=== PATIENT | female | born 1985 | race Two or more races ===

== ENCOUNTER 2016-09-30 13:59 | Emergency (ER) | payer SELFPAY ==
[~2016-09-30] VITALS: Ht 160 cm; Wt 54.4 kg
[2016-09-30 14:55] LABS: APPEARANCE,URINE SLIGHTLY CLOUDY; KETONES,URINE NEGATIVE (NEGATIVE); LEUKOCYTE ESTERASE ,URINE 2+ (NEGATIVE); NITRITE,URINE NEGATIVE (NEGATIVE); PH,URINE 6.5 (4.5-8.0); PROTEIN,URINE 1+ (NEGATIVE); UROBILINOGEN,URINE NORMAL MG/DL (0.0-1.0)
[2016-09-30 15:07] LABS: BACTERIA,URINE FEW /HPF; SQUAMOUS EPITHELIAL CELL,UR FEW /LPF (NONE/OCC); WBC,URINE 20-30 /HPF (0 - 2)
[2016-09-30] MEDS ORDERED: TYLENOL EXTRA500 MG ORAL (15:14)
[2016-09-30] MEDS ORDERED: CEPHALEXIN500 MG ORAL (15:14)
[2016-09-30 15:28] VITALS: BP 120/80
--- NOTE | 2016-09-30 21:03 | Emergency Room Report ---
History of Present Illness General Chief Complaint: Female Urogenital Problems Source: Patient Present Illness HPI The patient is a 31-year-old female presenting for mid lower abdominal pain and bilateral flank pain which began 3 days prior. Patient also admits to dysuria and increased urinary frequency. The patient states that the pain is a 5/10 dull ache to the mid lower abdomen. Pain does not radiate. Patient denies any vaginal discharge and denies other symptoms including hematuria, fever, chills, nausea, vomiting Allergies: Coded Allergies: No Known Allergies (Unverified , 09/30/16) Patient History Past Medical History: see triage record Pertinent Family History: none Last Menstrual Period: last month Now: No Reviewed Nursing Documentation: PMH: Agreed, PSxH: Agreed Nursing Documentation-PMH Past Medical History: No Stated History Review of Systems All Other Systems: negative except mentioned in HPI Physical Exam Vital Signs Date Time Temp Pulse Resp B/P Pulse Ox O2 Delivery O2 Flow Rate FiO2 09/30/16 14:20 98.1 78 18 122/75 99 Room Air Sp02 EP Interpretation: reviewed, normal General Appearance: no apparent distress, alert, GCS 15, non-toxic Head: normocephalic, atraumatic Eyes: bilateral eye PERRL, bilateral eye normal inspection ENT: hearing grossly normal, normal pharynx, no angioedema, normal voice Gastrointestinal: normal bowel sounds, soft, non-distended, no guarding, no rebound, tenderness - suprapubic Genitourinary: normal inspection, CVA tenderness (R), CVA tenderness (L) Musculoskeletal: back normal, gait/station normal, normal range of motion, non- tender Neurologic: alert, oriented x3, responsive, motor strength/tone normal, sensory intact, speech normal Psychiatric: judgement/insight normal, memory normal, mood/affect normal, no suicidal/homicidal ideation Skin: normal color, no rash, warm/dry, well hydrated Lymphatic: no adenopathy Medical Decision Making PA Attestation Dr. Romero is my supervising physician. Patient management was discussed with my supervising physician Diagnostic Impression: Primary Impression: Pyelonephritis ER Course The patient is a 31-year-old female presenting for mid lower abdominal pain and bilateral flank pain which began 3 days prior Differential diagnosis considered but not limited to: UTI, vaginitis, pyelonephritis, pyelonephrosis, PID, ectopic PE: Vitals WNL. NAD. Abdomen: Normal appearance. Non distended. No ecchymosis. Normal BS. No McBurney point tenderness. No guarding. + suprapubic TTP + bilat CVA tenderness Urinalysis is consistent with urinary tract infection. Pt will be treated for pyelonephritis with keflex. ER precautions given. Pt will FU with PMD Laboratory Tests Test 09/30/16 14:25 Urine Color Pale yellow Urine Appearance Slightly cloudy Urine pH 6.5 (4.5-8.0) Urine Specific [place] 1.010 (1.005-1.035) Urine Protein 1+ (NEGATIVE) H Urine Glucose (UA) Negative (NEGATIVE) Urine Ketones Negative (NEGATIVE) Urine Occult Blood 2+ (NEGATIVE) H Urine Nitrite Negative (NEGATIVE) Urine Bilirubin Negative (NEGATIVE) Urine Urobilinogen Normal MG/DL (0.0-1.0) Urine Leukocyte Esterase 2+ (NEGATIVE) H Urine RBC 2-4 /HPF (0 - 2) H Urine WBC 20-30 /HPF (0 - 2) H Urine Squamous Epithelial Cells Few /LPF (NONE/OCC) Urine Bacteria Few /HPF (NONE) Urine HCG, Qualitative Negative Lab Results Impression 20-30 WBCs Last Vital Signs Date Time Temp Pulse Resp B/P Pulse Ox O2 Delivery O2 Flow Rate FiO2 09/30/16 15:28 97.8 78 18 120/80 Room Air 09/30/16 15:26 98 Status: improved Disposition: HOME, SELF-CARE Condition: Improved Scripts Acetaminophen* (TYLENOL EXTRA STRENGTH*) 500 Mg Tablet 500 MG ORAL Q8H Y for Prn Headache/Temp > 101, #30 TAB 0 Refills Prov: TERZIAN,COLLIN P.A. 09/30/16 Cephalexin* (KEFLEX*) 500 Mg Capsule 500 MG ORAL EVERY 6 HOURS, #28 CAP Prov: TERZIAN,COLLIN P.A. 09/30/16 Patient Instructions: Urinary Tract Infection, Pyelonephritis, Adult Additional Instructions: I discussed my findings with the patient. All questions and concerns have been answered. Treatment and medication compliance have been addressed. I advised the patient that they need to follow up with PMD in 3-5 days. Return to ED if symptoms worsen, new symptoms arise, or if needed for any reason. Patient verbalized understanding of discharge instructions. COLLIN TURK Sep 30, 2016 21:03
== END 2016-09-30 15:30 | disposition home or self-care (01) ==
LOC: EMR 14:56
DX: N12 Tubulo-interstitial nephritis, not specified as acute or chronic (principal)
CPT/HCPCS: 81003; 81025; 87086; 99284